=== PATIENT | female | born 1995 | race Caucasian/White ===

== ENCOUNTER 2024-08-07 02:28 | Emergency (ER) | payer MEDICAID, OTHER ==
[~2024-08-07] VITALS: Ht 162.6 cm; Wt 55.5 kg
[2024-08-07 02:44] VITALS: BP 102/75; PULSE 138; RESP 20; TEMP 99; O2SAT 95
== END 2024-08-07 05:40 | disposition left against medical advice (07) ==
LOC: EMS 02:28
DX: B37.31 Acute candidiasis of vulva and vagina (principal); Z53.21 Procedure and treatment not carried out due to patient leaving prior to being seen by health care provider

== ENCOUNTER 2025-05-30 11:29 | Emergency (ER) | payer MEDICAID ==
[~2025-05-30] VITALS: Ht 162.6 cm; Wt 59.1 kg
[2025-05-30 12:01] LABS: PLATELET COUNT (AUTO) 236 K/uL (150-450); RED BLOOD CELL COUNT(AUTO) 3.66 MIL/uL (4.00-5.20); RED CELL DISTRIBUTION WIDTH 15.5 % (11.5-14.5); WHITE BLOOD COUNT (AUTO) 12.0 K/uL (4.5-11.0)
[2025-05-30] MEDS: LORazepam 2 MG/ML VIAL IVP ONE (12:06)
[2025-05-30] MEDS: LevETIRAcetam 1,000 MG in DEXTROSE 5%-WATER 100 ML IV ONE (12:07)
[2025-05-30 12:14] LABS: CALCIUM, TOTAL 9.2 mg/dL (8.8-10.5); CREATININE 0.87 mg/dL (0.60-1.30); GLOMERULAR FILTR. RATE CALC > 60 mL/min (>60); GLUCOSE,RANDOM 124 mg/dL (70-110); SODIUM SERUM 134 mmol/L (136-145); UREA NITROGEN, BLOOD 7 mg/dL (7-18)
[2025-05-30 12:17] LABS: ALCOHOL, BLOOD (SERUM) 40.0 mg/dL (0-10)
[2025-05-30 12:18] LABS: TROPONIN I-HIGH SENSITIVITY Less Than 4 ng/L (<51)
[2025-05-30 12:21] LABS: ASPARTATE AMINOTRANSFERASE 55.0 U/L (15-37); CREATINE KINASE, TOTAL ONLY 111.0 U/L (26-192); TOTAL PROTEIN, SERUM 8.2 g/dL (6.4-8.2)
[2025-05-30] MEDS: SODIUM CHLORIDE 0.9% 1,000 ML IV ONE (12:26)
[2025-05-30 13:08] LABS: RBC MORPHOLOGY COMMENT ABNORMAL RBC MORPH
[2025-05-30 14:18] LABS: APPEARANCE,URINE HAZY (CLEAR); GLUCOSE, URINE (UA) NEGATIVE (NEGATIVE); LEUKOCYTE ESTERASE ,URINE TRACE (NEGATIVE); NITRATE,URINE NEGATIVE (NEGATIVE); OCCULT BLOOD,URINE TRACE (NEGATIVE); PH,URINE DRUG SCREEN 6.5 (5.0-8.0); SPECIFIC GRAVITIY, URINE 1.023 (1.003-1.030)
[2025-05-30 14:26] LABS: SQUAMOUS EPITHELIAL CELL,UR Many /LPF (None Seen)
[2025-05-30 14:56] LABS: ALCOHOL, URINE DRUG SCREEN NEGATIVE (NEGATIVE); AMPHET/METH SCREEN,URINE NEGATIVE (NEGATIVE); BARBITURATE SCREEN, URINE NEGATIVE (NEGATIVE); CANNABINOID SCREEN,URINE NEGATIVE (NEGATIVE); COCAINE SCREEN,URINE POSITIVE (NEGATIVE); METHADONE SCREEN, URINE NEGATIVE (NEGATIVE)
[2025-05-30 15:30] VITALS: BP 102/72; PULSE 103; RESP 15; TEMP 98.505320; O2SAT 97
[2025-05-30] MEDS ORDERED: PREN-223 PO (18:12)
[2025-05-30] MEDS ORDERED: LEVE-71 PO (18:12)
== END 2025-05-30 18:41 | disposition home or self-care (01) ==
LOC: EMS 11:32
DX: O99.351 Diseases of the nervous system complicating pregnancy, first trimester (principal); G40.909 Epilepsy, unspecified, not intractable, without status epilepticus; F15.90 Other stimulant use, unspecified, uncomplicated; N89.8 Other specified noninflammatory disorders of vagina; Z90.89 Acquired absence of other organs; Z98.890 Other specified postprocedural states; Z3A.01 Less than 8 weeks gestation of pregnancy
CPT/HCPCS: 99285; 96374; 76801; 71045; 96361; 96375; 80048; 80076; 81001; 82550; 83735; 83880; 84484; 84702; 84703; 85025; 87077; 87086; 36415; 93005; 80307; J0712; G0480; J2060; J7060; J7030; 87186

== ENCOUNTER 2025-06-18 16:27 | Emergency (ER) | payer OTHER, MEDICAID ==
[~2025-06-18] VITALS: Ht 160 cm; Wt 56.4 kg
[~2025-06-18 16:27] MED LIST: LEVE-71 PO; PREN-223 PO
[2025-06-18 16:28] VITALS: BP 101/58; PULSE 90; RESP 18; TEMP 97.9; O2SAT 99
== END 2025-06-18 18:15 | disposition left against medical advice (07) ==
LOC: EMS 16:27
DX: O26.899 Other specified pregnancy related conditions, unspecified trimester (principal); Z3A.00 Weeks of gestation of pregnancy not specified; Z53.21 Procedure and treatment not carried out due to patient leaving prior to being seen by health care provider